=== PATIENT | female | born 1990 | race Two or more races ===

== ENCOUNTER 2024-06-21 14:40 | Emergency (ER) | payer OTHER ==
[~2024-06-21] VITALS: Ht 162.6 cm; Wt 85.0 kg
[2024-06-21 14:42] VITALS: O2SAT 100
[2024-06-21 16:09] VITALS: BP 109/70; PULSE 72; RESP 18; TEMP 98.7
[2024-06-21 16:14] LABS: CLARITY URINE CLOUDY (CLEAR); COLOR URINE DARK YELLOW (YELLOW); GLUCOSE URINE NEGATIVE (NEGATIVE); KETONES URINE TRACE (NEGATIVE); LEUKOCYTE ESTERASE URINE 1+ (NEGATIVE); NITRITE URINE NEGATIVE (NEGATIVE); OCCULT BLOOD URINE NEGATIVE (NEGATIVE); PH URINE 5.5 (4.5-8.0); PROTEIN URINE TRACE (NEGATIVE); SPECIFIC GRAVITY URINE 1.029 (1.005-1.030)
[2024-06-21 16:58] LABS: BACTERIA URINE 3+; MUCUS URINE 2+ /lpf (< = 2+); RBC URINE 0-2 /hpf (0-2); SQUAMOUS EPITHELIAL CELL URINE 1+ /lpf (RARE/1+)
== END 2024-06-21 16:10 | disposition home or self-care (01) ==
LOC: ER 14:40
DX: F11.90 Opioid use, unspecified, uncomplicated (principal); I10 Essential (primary) hypertension
CPT/HCPCS: 81003; 81025; 82962; 99283